=== PATIENT | female | born 2000 | race Caucasian/White ===

== ENCOUNTER 2020-11-30 15:23 | Emergency (ER) | payer OTHER ==
[~2020-11-30] VITALS: Ht 180.3 cm; Wt 95.3 kg
[2020-11-30] MEDS ORDERED: FLEXERIL PO ×2 (16:22→16:30)
[2020-11-30] MEDS ORDERED: MEDROLDOSEPACK PO ×2 (16:22→16:30)
[2020-11-30] MEDS ORDERED: NAPROSYN500 MG PO ×2 (16:22→16:30)
[2020-11-30 18:18] VITALS: BP 129/70
== END 2020-11-30 18:19 | disposition home or self-care (01) ==
LOC: M.ERS 15:23
DX: S20.219A Contusion of unspecified front wall of thorax, initial encounter (principal); S30.811A Abrasion of abdominal wall, initial encounter; S09.8XXA Other specified injuries of head, initial encounter; V89.2XXA Person injured in unspecified motor-vehicle accident, traffic, initial encounter; Y93.89 Activity, other specified; Y92.89 Other specified places as the place of occurrence of the external cause; Y99.8 Other external cause status

== ENCOUNTER 2021-07-03 19:22 | Emergency (ER) | payer OTHER ==
[~2021-07-03] VITALS: Ht 154.9 cm; Wt 99.8 kg
[~2021-07-03 19:22] MED LIST: FLEXERIL PO; MEDROLDOSEPACK PO; NAPROSYN500 MG PO
[2021-07-03] MEDS ORDERED: APAP W/CODEINE1 TA2 PO (20:32)
[2021-07-03] MEDS ORDERED: FLEXERIL PO (20:32)
[2021-07-03] MEDS ORDERED: MEDROLDOSEPACK PO (20:32)
[2021-07-03 20:40] VITALS: BP 132/85
== END 2021-07-03 20:41 | disposition home or self-care (01) ==
LOC: M.ERS 19:22
DX: S16.1XXA Strain of muscle, fascia and tendon at neck level, initial encounter (principal); V89.2XXA Person injured in unspecified motor-vehicle accident, traffic, initial encounter; Y93.89 Activity, other specified; Y92.89 Other specified places as the place of occurrence of the external cause; Y99.8 Other external cause status

== ENCOUNTER 2021-08-03 15:36 | Emergency (ER) | payer OTHER ==
[~2021-08-03] VITALS: Ht 167.6 cm; Wt 95.3 kg
[~2021-08-03 15:36] MED LIST changes: +APAP W/CODEINE1 TA2 PO
[2021-08-03 16:06] LABS: URINE BILIRUBIN NEGATIVE (Negative); URINE BLOOD NEGATIVE (Negative); URINE CLARITY CLEAR; URINE COLOR YELLOW; URINE GLUCOSE-RANDOM NEGATIVE (Negative); URINE KETONES NEGATIVE (Negative); URINE LEUKOCYTES-REFLEX NEGATIVE (Negative); URINE NITRITE-REFLEX NEGATIVE (Negative); URINE PROTEIN NEGATIVE (Negative); URINE SPECIFIC GRAVITY 1.025 (1.005-1.030); URINE UROBILINOGEN 0.2 E.U./dl (0.2-1.0)
[2021-08-03 16:19] LABS: ABSOLUTE BASOPHILS 0.1 thou/uL (0.0-0.2); ABSOLUTE EOSINOPHILS 0.3 thou/uL (0.0-0.7); ABSOLUTE LYMPHOCYTES 2.6 thou/uL (0.8-5.3); ABSOLUTE MONOCYTES 1.1 thou/uL (0.0-1.2); ABSOLUTE NEUTROPHILS 9.3 thou/uL (1.6-8.1); BASOPHILS 0.5 %; EOSINOPHILS 2.3 %; HEMATOCRIT 41.5 % (37.0-47.0); HEMOGLOBIN 14.2 gm/dL (12.0-15.0); LYMPHOCYTES 19.2 %; MCH 29.3 pg (26.0-34.0); MCHC 34.2 g/dL (28.0-37.0); MCV 85.7 fL (80.0-100.0); MONOCYTES 8.2 %; MPV 9.5 fl. (7.2-11.1); NUCLEATED RBCS 0 /100WBC; PLATELET COUNT* 244 thou/uL (150-400); POLYS 69.8 %; RBC 4.84 mil/uL (4.20-5.00); RDW-CV 12.5 % (10.5-14.5); WBC 13.3 thou/uL (4.0-11.0)
[2021-08-03 16:29] LABS: CALCIUM 8.5 mg/dL (8.5-10.1); CREATININE 0.7 mg/dL (0.6-1.3); POTASSIUM 3.7 mmol/L (3.5-5.1)
[2021-08-03 16:34] LABS: ALBUMIN 3.8 g/dL (3.4-5.0); TOTAL BILIRUBIN 0.4 mg/dL (<0.1-1.0); TOTAL PROTEIN 7.6 g/dL (6.4-8.2)
[2021-08-03] MEDS ORDERED: AUGMENTIN 875-1 EACH PO (18:17)
[2021-08-03 18:25] VITALS: BP 121/65
== END 2021-08-03 18:25 | disposition home or self-care (01) ==
LOC: M.ERS 15:36
PROVIDERS: Physician Assistant
DX: K57.32 Diverticulitis of large intestine without perforation or abscess without bleeding (principal); Z79.899 Other long term (current) drug therapy